=== PATIENT | male | born 1970 | race African-American/Black ===

== ENCOUNTER 2022-02-11 16:04 | Inpatient (IN) | payer SELFPAY ==
[2022-02-11 16:38] LABS: Hemoglobin 13.9 g/dL (14.0-18.0); Mean Corpuscular HGB CONC 33.8 g/dL (32.0-36.0); Mean Corpuscular Volume 94.7 fL (78.0-98.0); Mean Platelet Volume 7.1 fL (7.4-10.4); Platelet Count 200 thou/uL (130-400); RBC Distribution Width 11.6 % (11.5-14.5); Red Blood Cell (RBC) Count 4.35 mill/uL (4.70-6.10); White Blood Cell (WBC) Count 4.4 thou/uL (4.8-10.8)
[2022-02-11 16:53] LABS: Band 3 % (5-11); Eosinophils 3 % (0-10); Lymphocytes 31 % (21-51); MDiff Complete? YES; Monocytes 13 % (0-10); Neutrophil 38 % (42-75); Platelet Morphology Comment Appears Adequate; Polychromasia SLIGHT = 2-3 cells (100X) (0-2/hpf); Reactive Lymphocytes 11 % (0-10)
[2022-02-11 17:00] LABS: ALT (SGPT) 24 U/L (8-55); AST (SGOT) 28 U/L (5-34); Albumin 3.7 g/dL (3.5-5.0); Alkaline Phosphatase 68 U/L (40-110); Anion Gap 9 mmol/L (10-20); BUN (Urea Nitrogen) 17 mg/dL (8.9-20.6); Bilirubin, Total 0.5 mg/dL (0.2-1.2); Calc. Creatinine Clearance 0 mL/min (70-130); Calcium 8.4 mg/dL (7.8-10.44); Carbon Dioxide 26 mmol/L (22-29); Chloride 107 mmol/L (98-107); Globulin 3.8 g/dL (2.4-3.5); Glucose 67 mg/dL (70-105); Potassium 3.4 mmol/L (3.5-5.1); Protein, Total 7.5 g/dL (6.0-8.3); Sodium 139 mmol/L (136-145)
[2022-02-11] MEDS ORDERED: predniSONE 20 MG TAB ONE (17:01)
[2022-02-11 17:23] LABS: CKMB 1.5 ng/mL (0-6.6)
[2022-02-11] MEDS ORDERED: Furosemide 40 MG/4 ML VIAL ONE (18:26)
[2022-02-11] MEDS ORDERED: Lisinopril 10 MG TAB ONE (18:26)
[2022-02-11] MEDS ORDERED: hydrALAZINE 20 MG/ML VIAL ONE (18:26)
[2022-02-11] MEDS ORDERED: Nitroglycerin 2% Ointment 1 INCH/1 GM Packet ONE (18:26)
[2022-02-11] MEDS ORDERED: Nitroglycerin 0.4 MG TAB 1 EACH ONE (18:26)
[2022-02-11] MEDS ORDERED: Acetaminophen 325 MG TAB PO PRN (18:29)
[2022-02-11] MEDS ORDERED: Senokot S 8.6-50 MG TAB PO PRN (18:29)
[2022-02-11] MEDS ORDERED: Bisacodyl 5 MG TAB PO PRN (18:29)
[2022-02-11] MEDS ORDERED: Enoxaparin Sodium 40 MG/0.4 ML SYRINGE SC SCH (18:30)
[2022-02-11] MEDS ORDERED: Melatonin 3 MG TAB PO PRN (18:32)
[2022-02-11] MEDS ORDERED: hydrALAZINE 20 MG/ML VIAL SLOW IVP PRN (18:32)
[2022-02-11] MEDS ORDERED: Nitroglycerin 2% Ointment 1 INCH/1 GM Packet TOP SCH (18:36)
[2022-02-11] MEDS ORDERED: Losartan 25 MG TAB PO SCH (20:00)
[2022-02-11] MEDS ORDERED: Amlodipine 10 MG TAB PO SCH (20:00)
[2022-02-11] MEDS ORDERED: Aspirin 81 mg Enteric Coated Tablet PO SCH (20:00)
[2022-02-11 20:16] LABS: Troponin I 0.032 ng/mL (< 0.028)
[2022-02-11] MEDS: Nicotine 21 MG PATCH TD SCH (20:55)
[2022-02-11] MEDS ORDERED: Dextrose 50% Abboject 50 ML SYRINGE SLOW IVP PRN (21:35)
[2022-02-11] MEDS ORDERED: Dextrose 5% in Water 1,000 ML IV PRN (21:35)
[2022-02-11] MEDS ORDERED: Furosemide 20 MG/2 ML VIAL SLOW IVP SCH (22:15)
[2022-02-11] MEDS ORDERED: Potassium Chloride 20 MEQ TAB PO SCH (22:30)
[2022-02-11 23:03] VITALS: BMI 22.3
[2022-02-12 05:21] LABS: #Lymphocytes 1.2 thou/uL (1.20-3.40); #Monocytes 0.6 thou/uL (0.11-0.59); #Neutrophils 7.8 thou/uL (1.40-6.50); %Basophils 0.5 % (0.0-1.0); %Eosinophils 0.1 % (0.0-10.0); %Lymphocytes 12.7 % (21.0-51.0); %Monocytes 6.2 % (0.0-10.0); %Neutrophils 80.5 % (42.0-75.0); Hemoglobin 15.7 g/dL (14.0-18.0); Mean Corpuscular HGB CONC 34.2 g/dL (32.0-36.0); Mean Corpuscular Hemoglobin 32.2 pg (27.0-31.0); Mean Platelet Volume 7.5 fL (7.4-10.4); Platelet Count 243 thou/uL (130-400); RBC Distribution Width 11.5 % (11.5-14.5); Red Blood Cell (RBC) Count 4.87 mill/uL (4.70-6.10); White Blood Cell (WBC) Count 9.6 thou/uL (4.8-10.8)
[2022-02-12 05:36] LABS: Hemoglobin A1c 5.5 % (4.0-6.0)
[2022-02-12 05:50] LABS: ALT (SGPT) 24 U/L (8-55); AST (SGOT) 22 U/L (5-34); Albumin 3.9 g/dL (3.5-5.0); Alkaline Phosphatase 78 U/L (40-110); Anion Gap 12 mmol/L (10-20); BUN (Urea Nitrogen) 17 mg/dL (8.9-20.6); Bilirubin, Total 0.4 mg/dL (0.2-1.2); Calc. Creatinine Clearance 72 mL/min (70-130); Calcium 9.2 mg/dL (7.8-10.44); Carbon Dioxide 26 mmol/L (22-29); Chloride 102 mmol/L (98-107); Globulin 4.7 g/dL (2.4-3.5); Glucose 169 mg/dL (70-105); Potassium 3.9 mmol/L (3.5-5.1); Protein, Total 8.6 g/dL (6.0-8.3); Sodium 136 mmol/L (136-145)
[2022-02-12] MEDS: Furosemide 40 MG/4 ML VIAL SLOW IVP SCH ×2 (06:06→17:57)
[2022-02-12 08:15] LABS: Lactic Acid 1.1 mmol/L (0.5-2.2)
[2022-02-12] MEDS: Aspirin 81 mg Enteric Coated Tablet PO SCH (08:34)
[2022-02-12] MEDS: Amlodipine 10 MG TAB PO SCH (08:35)
[2022-02-12] MEDS: Losartan 25 MG TAB PO SCH (08:35)
[2022-02-12] MEDS: Enoxaparin Sodium 40 MG/0.4 ML SYRINGE SC SCH (08:36)
[2022-02-12] MEDS ORDERED: Losartan 25 MG TAB PO SCH (09:00)
[2022-02-12 15:39] LABS: SARS-CoV-2 PCR by NAA Not Detected (NotDetected)
[2022-02-12] MEDS: Nicotine 21 MG PATCH TD SCH (17:57)
[2022-02-13] MEDS: Furosemide 40 MG/4 ML VIAL SLOW IVP SCH (06:16)
[2022-02-13] MEDS: Amlodipine 10 MG TAB PO SCH (08:29)
[2022-02-13] MEDS: Aspirin 81 mg Enteric Coated Tablet PO SCH (08:29)
[2022-02-13] MEDS: Losartan 25 MG TAB PO SCH (08:29)
[2022-02-13] MEDS: Enoxaparin Sodium 40 MG/0.4 ML SYRINGE SC SCH (08:30)
[2022-02-13] MEDS: hydrALAZINE 25 MG TAB PO SCH ×3 (08:30→20:10)
[2022-02-13] MEDS: Furosemide 40 MG TAB PO SCH (14:29)
[2022-02-13] MEDS: Nicotine 21 MG PATCH TD SCH (18:13)
[2022-02-14] MEDS: Enoxaparin Sodium 40 MG/0.4 ML SYRINGE SC SCH (09:10)
[2022-02-14] MEDS: Aspirin 81 mg Enteric Coated Tablet PO SCH (09:11)
[2022-02-14] MEDS: Losartan 25 MG TAB PO SCH (09:11)
[2022-02-14] MEDS: hydrALAZINE 25 MG TAB PO SCH ×3 (09:11→21:34)
[2022-02-14] MEDS: Furosemide 40 MG TAB PO SCH ×2 (09:11→15:48)
[2022-02-14] MEDS: Amlodipine 10 MG TAB PO SCH (09:12)
[2022-02-14] MEDS: Nicotine 21 MG PATCH TD SCH (21:34)
[2022-02-15] MEDS: Losartan 25 MG TAB PO SCH (09:13)
[2022-02-15] MEDS: Aspirin 81 mg Enteric Coated Tablet PO SCH (09:13)
[2022-02-15] MEDS: hydrALAZINE 25 MG TAB PO SCH ×2 (09:13→14:54)
[2022-02-15] MEDS: Furosemide 40 MG TAB PO SCH ×2 (09:14→14:54)
[2022-02-15] MEDS: Amlodipine 10 MG TAB PO SCH (09:14)
[2022-02-15] MEDS: Enoxaparin Sodium 40 MG/0.4 ML SYRINGE SC SCH (09:14)
[2022-02-15 11:54] VITALS: BP 149/101; TEMP 98
== END 2022-02-15 15:10 | disposition home or self-care (01) | DRG 291 ==
LOC: ERS 16:04 → 2SW 18:05 → OBSVTOIN 02-12 10:51
PROVIDERS: ADMIT Internal Medicine; ATTEND Internal Medicine
DX: I13.0 Hypertensive heart and chronic kidney disease with heart failure and stage 1 through stage 4 chronic kidney disease, or unspecified chronic kidney disease (principal); I50.33 Acute on chronic diastolic (congestive) heart failure; I16.1 Hypertensive emergency; Z20.822 Contact with and (suspected) exposure to COVID-19; F14.10 Cocaine abuse, uncomplicated; N18.2 Chronic kidney disease, stage 2 (mild); F17.210 Nicotine dependence, cigarettes, uncomplicated; E16.2 Hypoglycemia, unspecified; R50.9 Fever, unspecified; Z59.00 Homelessness unspecified; Z71.6 Tobacco abuse counseling; Z79.899 Other long term (current) drug therapy; Z79.82 Long term (current) use of aspirin; Z91.14 Patient's other noncompliance with medication regimen
CPT/HCPCS: 36415; 36416; 71045; 80053; 82553; 83036; 83605; 83880; 84145; 84484; 85025; 87040; 93005; 93306; 93798; 94640; 96372; 96374; 96375; 96376; G0378; J0360; J1650; J1940; J7512; J7620; U0003; U0005

== ENCOUNTER 2024-07-09 09:37 | Outpatient (CLI) | payer OTHER | END 2024-07-09 09:38 | disposition home or self-care (01) | LOC: BICRAD 09:37 | PROVIDERS: ATTEND Nurse Practitioner Family | DX: R76.12 Nonspecific reaction to cell mediated immunity measurement of gamma interferon antigen response without active tuberculosis (principal) | CPT/HCPCS: 71046 ==

== ENCOUNTER 2024-08-21 09:35 | Emergency (ER) | payer SELFPAY ==
[2024-08-21] MEDS ORDERED: Ketorolac Tromethamine 30 MG (1 mL) VIAL ONE (12:20)
[2024-08-21] MEDS ORDERED: Cyclobenzaprine 10 MG TAB ONE (12:20)
== END 2024-08-21 12:26 | disposition home or self-care (01) ==
LOC: ERS 09:35
DX: S39.012A Strain of muscle, fascia and tendon of lower back, initial encounter (principal); I11.0 Hypertensive heart disease with heart failure; I50.9 Heart failure, unspecified; F17.210 Nicotine dependence, cigarettes, uncomplicated; X50.0XXA Overexertion from strenuous movement or load, initial encounter
CPT/HCPCS: 99282; J1885